=== PATIENT | female | born 1990 | race Caucasian/White ===

== ENCOUNTER 2019-08-21 17:51 | Emergency (ER) | payer MEDICAID ==
--- NOTE | 2019-08-21 18:57 | ER Document Report ---
HPI - HPI Time Seen by Provider: 08/21/19 18:52 Notes: CHIEF COMPLAINT: Sore throat for 3 to 4 days HPI: 28-year-old female presenting for evaluation of sore throat over the last 3 to 4 days. Reports painful swallowing. No definitive fever no voice change ROS: See HPI - all other systems were reviewed and are otherwise negative Constitutional: no fever Eyes: no drainage, no blurred vision ENT: no runny nose, + sore throat Cardiovascular: no chest pain Resp: no SOB, no cough GI: no vomiting, no diarrhea, no abdominal pain : no dysuria Integumentary: no rash Allergy: no hives Musculoskeletal: no extremity pain or swelling Neurological: no numbness/tingling, no weakness MEDICATIONS: I agree with the patient medications as charted by the RN. ALLERGIES: I agree with the allergies as charted by the RN. PAST MEDICAL HISTORY/PAST SURGICAL HISTORY: Reviewed and agree as charted by RN. SOCIAL HISTORY: Reviewed and agree as charted by RN. FAMILY HISTORY: No significant familial comorbid conditions directly related to patient complaint EXAM: Reviewed vital signs as charted by RN. CONSTITUTIONAL: Alert and oriented and responds appropriately to questions. Well-appearing; well-nourished, mild distress secondary to pain HEAD: Normocephalic; atraumatic EYES: PERRL; Conjunctivae clear, sclerae non-icteric ENT: normal nose; no rhinorrhea; moist mucous membranes; posterior pharynx with bilateral tonsillar hypertrophy with exudate, no soft palate swelling, no uvula edema or deviation, phonation normal. Bilateral tympanic membranes are pearly burleson NECK: Supple without meningismus; non-tender; positive anterior cervical lymphadenopathy, no masses CARD: Capillary refill less than 3 seconds, symmetric distal pulses RESP: Normal chest excursion without splinting or tachypnea ABD/GI: Normal bowel sounds; non-distended; soft, non-tender, no rebound, no guarding; no palpable organomegaly or masses. BACK: The back appears normal EXT: Normal ROM in all joints; no cyanosis, no effusions, no edema SKIN: Normal color for age and race; warm; dry; good turgor; no acute lesions noted NEURO: Moves all extremities equally; Motor and sensory function intact PSYCH: The patient's mood and manner are appropriate. Grooming and personal hygiene are appropriate. MDM: 28-year-old female with tonsillitis, will check rapid strep Past Medical History - Social History Smoking Status: Unknown if Ever Smoked Family History: Reviewed & Not Pertinent Course - Re-evaluation Re-evalutation: 08/21/19 19:41 Rapid strep is negative, patient appears to have tonsillitis, will treat with amoxicillin - Vital Signs Vital signs: Temp Pulse Resp BP Pulse Ox 98.5 F 70 20 123/68 100 08/21/19 18:06 08/21/19 18:06 08/21/19 18:06 08/21/19 18:06 08/21/19 18:06 Discharge - Discharge Clinical Impression: Acute tonsillitis Qualifiers: Pharyngitis/tonsillitis etiology: unspecified etiology Qualified Code(s): J03.90 - Acute tonsillitis, unspecified Condition: Stable Disposition: HOME, SELF-CARE Additional Instructions: 1. medicines as prescribed 2. take Motrin/Tylenol consistently for pain and fever 3. hydrate well at home with fluids/juices 4. recheck with your PCP for further evaluation and treatment, call for appt. 5. return to the ED for any difficulty swallowing or worsening condition 6. warm salt water gargles for throat discomfort 3 times daily 7. rapid strep was negative Prescriptions: Amoxicillin 1 tab PO TID #30 tab Referrals: SELINA TAPIA MD [ACTIVE STAFF] - Follow up as needed
[2019-08-21] MEDS ORDERED: AMOXICILLIN TRIHYDRATE 500 MG CAPSULE PO ONE (19:41)
[2019-08-21 19:46] VITALS: BP 122/66
== END 2019-08-21 20:06 | disposition home or self-care (01) ==
LOC: ER 17:51
DX: J03.90 Acute tonsillitis, unspecified (principal)
CPT/HCPCS: 87070; 87077; 87880; 99283

== ENCOUNTER 2019-10-31 11:30 | Emergency (ER) | payer SELFPAY ==
[2019-10-31 11:35] VITALS: BP 124/77
--- NOTE | 2019-10-31 11:50 | ER Document Report ---
HPI - HPI Time Seen by Provider: 10/31/19 11:44 Notes: Healthy 29-year-old female presents to the emergency department chief complaint of upper dental pain on the left side. Patient reports this is been ongoing for the last week, radiating to her left ear. She denies any fevers or drainage f rom the area. She does not have a dentist. - REPRODUCTIVE Reproductive: DENIES: : Past Medical History - General Information source: Patient - Social History Smoking Status: Never Smoker Frequency of alcohol use: None Drug Abuse: None Family History: Reviewed & Not Pertinent - Medical History Medical History: Negative Surgical Hx: Negative - Immunizations Immunizations up to date: Yes Vertical Provider Document - CONSTITUTIONAL Notes: PHYSICAL EXAMINATION: GENERAL: Well-appearing, well-nourished and in no acute distress. HEAD: Atraumatic, normocephalic. EYES: Pupils equal round extraocular movements intact, conjunctiva are normal. ENT: Nares patent, bilateral TMs and ear canals unremarkable. NECK: Normal range of motion LUNGS: No respiratory distress Musculoskeletal: Normal range of motion, swelling and erythema noted to tooth #18, 14 and 15. No esther abscess noted. NEUROLOGICAL: Normal speech, normal gait. PSYCH: Normal mood, normal affect. SKIN: Warm, Dry, normal turgor, no rashes or lesions noted. - INFECTION CONTROL TRAVEL OUTSIDE OF THE [place] IN LAST 30 DAYS: No Course - Re-evaluation Re-evalutation: 10/31/19 11:48 Presentation is most consistent with likely an infected tooth. Airway is patent. Vitals within normal limits. Patient is able swallow without any difficulty. There is no significant facial swelling. No evidence of Tony angina, apical abscess, or airway obstruction. Patient will be started on antibiotics. I've instructed to follow-up with dentistry as earliest ability for definitive management. At this time will discharge with return precautions and follow-up recommendations. Verbal discharge instructions given a the bedside and opportunity for questions given. Medication warnings reviewed. Patient is in agreement with this plan and has verbalized understanding of return precautions and the need for primary care follow-up in the next 24-72 hours. - Vital Signs Vital signs: Temp Pulse Resp BP Pulse Ox 98.2 F 62 20 124/77 99 10/31/19 11:33 10/31/19 11:33 10/31/19 11:33 10/31/19 11:33 10/31/19 11:33 Discharge - Discharge Clinical Impression: Dental infection Condition: Stable Disposition: HOME, SELF-CARE Additional Instructions: You have been seen for dental pain. It is very important that you follow-up w ith a dentist for definitive care. Please return if you develop fever greater than 101, swelling in your face, vomiting, difficulty breathing or swallowing, or any other symptoms that are concerning to you. For pain you should take ibuprofen 800 mg every 8 hours as needed. Take the antibiotic as prescribed. When you get the antibiotic please take 2 tablets for the first dose. Please call the [facility] to see if they can get you an appointment. Their phone number is [phone]. Prescriptions: Amoxicillin 1 tab PO TID #30 tab
== END 2019-10-31 11:50 | disposition home or self-care (01) ==
LOC: ER 11:30
DX: K04.7 Periapical abscess without sinus (principal)
CPT/HCPCS: 99282